=== PATIENT | male | born 1970 | race Caucasian/White ===

== ENCOUNTER 2017-03-02 13:29 | Emergency (ER) | payer OTHER ==
[2017-03-02 13:38] VITALS: BP 116/67; PULSE 74; RESP 18; TEMP 98.1; O2SAT 96
--- NOTE | 2017-03-02 14:19 | UCPHY ---
H & P Patient Type: New Chief Complaint Nursing Narrative: woke with R lower back pain x 2 days ago; denies trauma Time Seen by Provider: 03/02/17 13:40 HPI/ROS: CHIEF COMPLAINT: Right sacroiliac pain HISTORY OF PRESENT ILLNESS: The patient presents to the ED with a 3 day history of right sacroiliac pain. The patient denies history of fall or trauma. The patient has been working out in the gym. He denies associated numbness or weakness in his leg. The patient denies prior history of low back surgery. The patient has no additional medical complaints. The patient denies additional traumatic complaints. REVIEW OF SYSTEMS: A comprehensive 10 point review of systems is otherwise negative aside from elements mentioned in the history of present illness. Source: Patient Exam Limitations: No limitations - Personal History Current Tetanus Diphtheria and Acellular Pertussis (TDAP): Yes - Medical/Surgical History PMH: Past medical history: Noncontributory - Family History Significant Family History: No pertinent family hx - Social History Smoking Status: Never smoked - Physical Exam Exam: General Appearance: Alert, no distress Eyes: Pupils equal and round no pallor or injection ENT, Mouth: Mucous membranes moist Respiratory: There are no retractions, lungs are clear to auscultation Cardiovascular: Regular rate and rhythm Gastrointestinal: Abdomen is soft and nontender, no masses, bowel sounds normal Neurological: A&O, normal motor function, normal sensory exam, normal cranial nerves Skin: Warm and dry, no rashes Musculoskeletal: Tenderness to palpation in the right sacroiliac joint Extremities: symmetrical, full range of motion Constitutional: Initial Vital Signs Temperature (C) 36.7 C 03/02/17 13:32 Heart Rate 74 03/02/17 13:32 Respiratory Rate 18 03/02/17 13:32 Blood Pressure 116/67 03/02/17 13:32 O2 Sat (%) 96 03/02/17 13:32 Allergies/Adverse Reactions: No Known Allergies Allergy (Unverified 03/02/17 13:35) Home Medications: Medication Instructions Recorded Ibuprofen [Motrin (*)] 600 mg PO QID PRN #30 tab 03/02/17 Medical Decision Making ED Course/Re-evaluation: The patient presents to the ED with fairly typical right sacroiliac inflammation. The patient is noted to be neurologically intact. The patient has no midline lumbar tenderness. The patient will be treated with NSAIDs and advised to use ice therapy. The patient is given customary aftercare instructions and return precautions. Departure - Departure Disposition: Home, Routine, Self-Care Clinical Impression: Sacroiliitis Condition: Good Instructions: Sacroiliitis (ED), Lower Back Exercises (ED) Additional Instructions: 1. Take Ibuprofen or Motrin 600 mg by mouth three times a day. 2. Return to the ED for increasing pain, numbness, weakness in your legs, fever or other concerns. Referrals: NONE *PRIMARY CARE P,. [Primary Care Provider] - As per Instructions Stand Alone Forms: Work Excuse - PQRS PQRS Measurement: N/A
== END 2017-03-02 14:36 | disposition home or self-care (01) ==
LOC: CED 13:29
DX: M46.1 Sacroiliitis, not elsewhere classified (principal)
CPT/HCPCS: G0463-PO